=== PATIENT | male | born 1945 | race Caucasian/White ===

== ENCOUNTER → 2017-11-04 | Outpatient (CLI) | payer OTHER, MEDICARE | LOC: BMCIMAGING 13:27 | PROVIDERS: ATTEND Specialist | DX: N40.1 Benign prostatic hyperplasia with lower urinary tract symptoms (principal) ==

== ENCOUNTER → 2018-06-20 | Outpatient (CLI) | payer OTHER, MEDICARE | LOC: BMCIMAGING 10:15 | PROVIDERS: ATTEND Internal Medicine | DX: Z13.820 Encounter for screening for osteoporosis (principal); M85.89 Other specified disorders of bone density and structure, multiple sites; Z82.62 Family history of osteoporosis ==

== ENCOUNTER → 2018-07-26 | Outpatient (CLI) | payer OTHER, MEDICARE | LOC: BHFA 13:15 | PROVIDERS: ATTEND Internal Medicine Cardiovascular Disease | DX: I48.92 Unspecified atrial flutter (principal); J44.9 Chronic obstructive pulmonary disease, unspecified ==